=== PATIENT | female | born 1995 | race Hispanic/Latino ===

== ENCOUNTER 2018-01-17 14:05 | Emergency (ER) | payer OTHER ==
[~2018-01-17] VITALS: Ht 172.7 cm; Wt 113.6 kg
[~2018-01-17 14:05] MED LIST: Motrin PO; NATALCARE RX1 TABLET PO; NOHOMEMEDS; Percocet 5/325,Endoc PO
[2018-01-17 16:04] VITALS: BP 112/72
== END 2018-01-17 16:04 | disposition home or self-care (01) ==
LOC: EME 14:05
DX: S93.401A Sprain of unspecified ligament of right ankle, initial encounter (principal); W01.0XXA Fall on same level from slipping, tripping and stumbling without subsequent striking against object, initial encounter; Y93.01 Activity, walking, marching and hiking; Y92.008 Other place in unspecified non-institutional (private) residence as the place of occurrence of the external cause
CPT/HCPCS: 73610; 99281; 99283